=== PATIENT | male | born 1960 | race Caucasian/White ===

== ENCOUNTER → 2018-12-07 | Outpatient (CLI) | payer OTHER | END | disposition home or self-care (01) | LOC: SLAB 19:51 | PROVIDERS: ATTEND Family Medicine | DX: G47.30 Sleep apnea, unspecified (principal); F10.288 Alcohol dependence with other alcohol-induced disorder | CPT/HCPCS: 95811 ==

== ENCOUNTER 2019-03-11 07:30 | Emergency (ER) | payer OTHER ==
[~2019-03-11] VITALS: Ht 177.8 cm; Wt 99.3 kg
[2019-03-11 07:31] VITALS: BP 122/65
[2019-03-11 07:33] VITALS: BP 122/65
[2019-03-11 07:34] VITALS: BP 122/65
--- NOTE | 2019-03-11 07:36 | NUR ---
ARRIVAL PATIENT ARRIVED TO ED6 VIA GURNEY BY [facility], C/O OF BLOODY DIARRHEA TODAY X2, DOES HAVE A HISTORY OF BLEEDING ULCERS, EMS INTIATED A 20G TO THE LEFT AC SALINE LOCKED, CALLED EMS TO BRING TO THE ED FOR EVAL.
[2019-03-11] MEDS ORDERED: NS 1000ML 1,000 ML IV STA (07:40)
--- NOTE | 2019-03-11 07:46 | ER.PDOC ---
General Chief Complaint: Nausea,Vomiting,Diarrhea Stated Complaint: DIARRHEA/WEAKNESS Time seen by MD: 07:44 Source: patient Exam Limitations: no limitations History of Present Illness Initial Comments Diarrhea since yesterday, no abdominal pain, no nausea or vomiting. Severity/Quality: moderate Associated Symptoms (diarrhea): copious, bloody stool, watery Allergies: Coded Allergies: azithromycin (Verified Allergy, Unknown, 03/11/19) Vital Signs First Vital Signs Date Time Temp Pulse Resp B/P (MAP) Pulse Ox O2 Delivery O2 Flow Rate FiO2 03/11/19 07:31 98.0 97 16 98 Room Air 03/11/19 07:34 122/65 (84) Last Vital Signs Date Time Temp Pulse Resp B/P (MAP) Pulse Ox O2 Delivery O2 Flow Rate FiO2 03/11/19 09:51 98.0 84 16 100/49 (66) 98 Room Air Past Medical History Medical History: CVA/TIA/stroke, cardiac problems, hypertension Surgical History: no surgical history Social History Smoking: chew Alcohol Use: occassionally Drug Use: none Constitutional: no symptoms reported EENTM: no symptoms reported Respiratory: no symptoms reported Cardiovascular: no symptoms reported Gastrointestinal: see HPI All Other Systems: Reviewed and Negative Physical Exam General Appearance: No Apparent Distress, WD/WN Neck: Non-Tender, Full Range of Motion, Supple, Normal Inspection Respiratory: chest non-tender, lungs clear, normal breath sounds, no respiratory distress, no accessory muscle use Cardiovascular: Normal Peripheral Pulses, Regular Rate, Rhythm, No Edema, No Gallop, No JVD, No Murmur Gastrointestinal: Normal Bowel Sounds, Non Tender, Soft Back: Normal Inspection, No CVA Tenderness, No Vertebral Tenderness Extremities: Normal Range of Motion, Non-Tender, Normal Inspection, No Pedal Edema, No Calf Tenderness, Normal Capillary Refill, Pelvis Stable Neurologic/Psychiatric: fitness floor attendant II-XII NML as Tested, No Motor/Sensory Deficits, Alert, Normal Mood/Affect, Oriented x 3 Skin: Normal Color, Warm/Dry Results/Orders Results/Orders Orders - WILLOW TAYLOR MD Cbc With Auto Diff (03/11/19 07:40) Comprehensive Metabolic Panel (03/11/19 07:40) Clostridium Difficile Panel (03/11/19 07:40) Stool Occult Blood(Ifobt) (03/11/19 07:40) Lactoferrin Fecal Qual(Ml) (03/11/19 07:40) Stool Culture(Ml) (03/11/19 07:40) 0.9 % Sodium Chloride (Ns 1000ml) (03/11/19 07:40) PT (03/11/19 07:45) Partial Thromboplastin Time. (03/11/19 07:45) Urinalysis (03/11/19 07:45) 0.9 % Sodium Chloride (Ns 1000ml) (03/11/19 07:47) Blood Culture (03/11/19 08:35) Lactic Acid(Ml) (03/11/19 08:35) Ct Abd/Pelvis Wo Iv Contrast (03/11/19 08:35) Vancomycin Hcl (Vancomycin Hcl) (03/11/19 09:29) Vital Signs Date Time Temp Pulse Resp B/P (MAP) Pulse Ox O2 Delivery O2 Flow Rate FiO2 03/11/19 09:51 98.0 84 16 100/49 (66) 98 Room Air 03/11/19 07:34 98.0 97 16 122/65 (84) 98 Room Air 03/11/19 07:33 98.0 97 16 03/11/19 07:31 98.0 97 16 98 Room Air Administered Medications Medications (Trade) Dose Ordered Sig/Isak Route PRN Reason Start Time Stop Time Status Last Admin Dose Admin Sodium Chloride 1,000 ml @ 1,200 mls/hr Q50M STAT IV 03/11/19 07:40 03/11/19 08:29 DC 03/11/19 08:12 1,200 MLS/HR Vancomycin HCl (Vancomycin HCl) 250 mg STAT STAT PO 03/11/19 09:29 03/11/19 09:30 DC 03/11/19 09:50 250 MG Laboratory Tests Test 03/11/19 08:00 03/11/19 08:05 03/11/19 08:45 Stool Occult Blood (IFOB) POSITIVE (NEGATIVE) Stool Lactoferrin POSITIVE Clostridioides difficile Screen POSITIVE Clostridioides difficile Toxin A & B POSITIVE White Blood Count 18.1 10^3/uL (4.5-11.0) H Red Blood Count 3.83 10^6/uL (4.50-5.90) L Hemoglobin 12.7 g/dL (13.9-16.3) L Hematocrit 37.3 % (37.0-53.0) Mean Corpuscular Volume 97.4 fL (78-100) Mean Corpuscular Hemoglobin 33.2 pg (26-34) Mean Corpuscular Hemoglobin Concent 34.0 g/dL (33-37) Red Cell Distribution Width 13.3 % (11.5-14.5) Platelet Count 223 10^3/uL (150-400) Mean Platelet Volume 11.1 fL (7.8-11.0) H Neutrophils (%) (Auto) 80.2 % (41.0-85.0) Lymphocytes (%) (Auto) 11.7 % (24.0-44.0) L Monocytes (%) (Auto) 6.8 % (5.0-12.0) Neutrophils # (Auto) 14.5 10^3/uL (1.8-7.7) H Lymphocytes # (Auto) 2.1 10^3/uL (1.0-4.8) Monocytes # (Auto) 1.2 10^3/uL (0.3-0.8) H Absolute Immature Granulocyte (auto 0.08 10^3 u/L (0-2) Immature Granulocytes % 0.40 % (0.00-0.50) Eosinophils % 0.7 % (0.0-5.0) Basophils % 0.2 % (0.0-0.2) Basophils # 0.0 10^3/uL (0.0-0.1) Eosinophil Count 0.1 10^3/uL (0.0-0.2) Prothrombin Time 10.6 SEC (9.4-11.5) Prothrombin Time INR (Non-Therap) 1.0 Activated Partial Thromboplast Time 24.3 SEC (24.67-30.72) Sodium Level 136 mmol/L (132-145) Potassium Level 4.4 mmol/L (3.6-5.2) Chloride Level 102.0 mmol/L (96-109) Carbon Dioxide Level 23.5 mmol/L (20.0-32) Anion Gap 14.9 Blood Urea Nitrogen 107 mg/dL (7-18) *H Creatinine 2.49 mg/dL (0.59-1.40) *H Estimated GFR () 32.6 (>/=60) BUN/Creatinine Ratio 42.0 Glucose Level 105 mg/dL (70-110) Calcium Level 9.6 mg/dL (8.4-10.5) Total Bilirubin 0.8 mg/dL (0.2-1.0) Aspartate Amino Transferase (AST) 19 U/L (0-35) Alanine Aminotransferase (ALT) 25 U/L (12-78) Alkaline Phosphatase 59 U/L (50-136) Total Protein 6.9 g/dL (6.4-8.2) Albumin 3.3 g/dL (3.4-5.0) L Globulin 3.6 Lactic Acid Level 1.6 mmol/L (0.50-2.00) Progress Progress Patient is a and transferred to the [place] EKG/XRAY/CT/US CT Comments: Nothing acute on CT abdomen/pelvis Departure Time of Disposition: 10:39 Disposition: 02 XFER [facility] HOSP Impression: Primary Impression: Clostridioides difficile diarrhea Additional Impressions: Acute kidney injury Dehydration Condition: Stable Referrals: PCP,UNKNOWN (PCP) PRIMARY CARE PROVIDER Comments Transfer to [facility] ED for Dr. Velasquez Duration or Time Spent with Pa: 60 mins Problem Qualifiers WILLOW TAYLOR MD Mar 11, 2019 07:46
[2019-03-11] MEDS ORDERED: NS 1000ML 1,000 ML ONE (07:47)
[2019-03-11 08:19] LABS: BASOPHIL % 0.2 % (0.0-0.2); EOSINOPHIL # 0.1 10^3/uL (0.0-0.2); EOSINOPHIL % 0.7 % (0.0-5.0); LYMPHOCYTES # 2.1 10^3/uL (1.0-4.8); LYMPHOCYTES % 11.7 % (24.0-44.0); MEAN CORP HGB 33.2 pg (26-34); MONOCYTES # 1.2 10^3/uL (0.3-0.8); MONOCYTES % 6.8 % (5.0-12.0); NEUTROPHIL # 14.5 10^3/uL (1.8-7.7); NEUTROPHILS % 80.2 % (41.0-85.0); RED CELL DISTRIBUTION WIDTH 13.3 % (11.5-14.5)
[2019-03-11 08:33] LABS: CALCIUM 9.6 mg/dL (8.4-10.5); CARBON DIOXIDE 23.5 mmol/L (20.0-32)
[2019-03-11] MEDS ORDERED: VANCOMYCIN HCL PO STA (09:29)
[2019-03-11 09:51] VITALS: BP 100/49
--- NOTE | 2019-03-11 09:56 | DIREP ---
PROCEDURE:CT ABDOMEN/PELVIS W/O CONTRAST COMPARISON:None. INDICATIONS:Pain and diarrhea TECHNIQUE:Axial images were created through the abdomen and pelvis without intravenous contrast material. No oral contrast was administered. Sagittal and coronal reconstructions were performed from source images. FINDINGS: LUNG BASES:Normal. No visible pulmonary or pleural disease. LIVER:Diffuse hypoattenuation, consistent with fatty change. No focal lesion. BILIARY:Normal. No visible dilatation or calcification. PANCREAS:Normal. No lesion, fluid collection, ductal dilatation, or atrophy. SPLEEN:Normal. No enlargement or focal lesion. ADRENALS:Nonspecific fat stranding within the bilateral periadrenal mesentery. No focal lesion identified. URINARY TRACT:Bilateral nonobstructing renal calculi, measuring 2 mm on the right and 3 mm on the left. No hydronephrosis or ureteral calculi. Urinary bladder within normal limits. AORTA/VASCULAR:Limited without IV contrast. No aortic aneurysmal dilatation. RETROPERITONEUM:Normal. No mass or adenopathy. BOWEL/MESENTERY:No free air. Lack of oral contrast limits evaluation of the bowel structures. Small hiatal hernia. No small bowel dilatation seen to suggest obstruction. Appendix within normal limits. ABDOMINAL WALL:Normal. No mass or hernia. PELVIC ORGANS:Normal. No visible mass. Pelvic organs appropriate for patient age. BONES:Degenerative change without evidence of acute osseus abnormality. OTHER:Negative. CONCLUSION: 1. Hepatic steatosis without focal lesion. 2. Nonspecific trace fat stranding surrounding the bilateral adrenal glands. No adrenal gland thickening or focal lesions seen. 3. No bowel obstruction. Appendix within normal limits. 4. Nonobstructing renal calculi. No hydronephrosis. 5. Additional findings as described. Dictated by: Toribio Mcintyre MD on 03/11/2019 at 09:48 AM
--- NOTE | 2019-03-11 10:37 | NUR ---
[facility] AT [facility] TO DISCUSS [facility]FER.
[2019-03-11] MEDS ORDERED: LACTATED RINGERS 1,000 ML IV STA (10:41)
--- NOTE | 2019-03-11 10:49 | NUR ---
[facility] DOCTOR CLAUDIA ON THE PHONE WITH DOCTOR TODD DISCUSSING ADMISSION.
[2019-03-11] MEDS ORDERED: LACTATED RINGERS 1,000 ML ONE (10:51)
--- NOTE | 2019-03-11 10:51 | NUR ---
[facility] TODD DECLINED ADMISSION, WILL ATTEMPT TO TRANFER PATIENT TO [place].
--- NOTE | 2019-03-11 10:53 | NUR ---
[facility] DOCTOR CLAUDIA ON THE PHONE WITH [facility], DOCTOR ARIAS ACCEPTING PHYSICIAN AND WILL DANIELLE.
[2019-03-11] MEDS ORDERED: PROTONIX IV IV STA (10:54)
[2019-03-11] MEDS ORDERED: PROTONIX IV IV ONE (11:00)
--- NOTE | 2019-03-11 11:09 | NUR ---
DISPATCH DISPATCH NOTIFIED OF PATIENT TRANFER.
[2019-03-11 11:11] VITALS: BP 103/44
--- NOTE | 2019-03-11 11:16 | NUR ---
REPORT REPORT CALLED TO ANNIA HASSAN RN AT [facility] ED.
--- NOTE | 2019-03-11 11:26 | NUR ---
[facility] HERE FOR TRANSFER
== END 2019-03-11 11:27 | disposition short-term general hospital (02) ==
LOC: EDBD 07:30 → ER 07:30
DX: N17.9 Acute kidney failure, unspecified (principal); E86.0 Dehydration; A04.72 Enterocolitis due to Clostridium difficile, not specified as recurrent; I10 Essential (primary) hypertension; Z86.73 Personal history of transient ischemic attack (TIA), and cerebral infarction without residual deficits; Z88.1 Allergy status to other antibiotic agents
CPT/HCPCS: 36415; 74176; 80053; 82272; 83605; 83630; 85025; 85610; 85730; 87040 ×2; 87045; 87077; 87186; 87230 ×2; 96361 ×2; 96374; 99285; C9113; J7030; J7120